=== PATIENT | male | born 1965 | race Caucasian/White ===

== ENCOUNTER 2017-07-05 07:47 | Emergency (ER) | payer OTHER, MEDICAID ==
[2017-07-05 09:55] VITALS: BP 123/88
== END 2017-07-05 09:53 | disposition home or self-care (01) ==
LOC: ED 07:47
DX: J11.1 Influenza due to unidentified influenza virus with other respiratory manifestations (principal)
CPT/HCPCS: 87804; Q0092

== ENCOUNTER 2019-05-14 07:12 | Emergency (ER) | payer MEDICAID ==
[~2019-05-14] VITALS: Ht 165.1 cm; Wt 86.2 kg
[2019-05-14 07:16] VITALS: Ht 165.1 cm; Wt 86.2 kg
[2019-05-14 07:53] VITALS: BP 158/81
== END 2019-05-14 07:53 | disposition home or self-care (01) ==
LOC: ED 07:12
DX: F41.9 Anxiety disorder, unspecified (principal); F32.9 Major depressive disorder, single episode, unspecified; M54.12 Radiculopathy, cervical region